=== PATIENT | female | born 1945 | race Caucasian/White ===

== ENCOUNTER → 2020-07-07 14:37 | Outpatient (CLI) | payer MEDICARE, SELFPAY ==
--- NOTE | ~2020-07-07 | MM_ITS ---
EXAMINATION: MM screening [facility] BI w sandie HISTORY: Screening mammogram TECHNIQUE: Craniocaudal and mediolateral oblique 3-D tomosynthesis images were obtained and synthetic 2-D images were generated. CAD analysis was submitted and interpreted. COMPARISON: 06/14/2019, 04/13/2018, 01/06/2017 bilateral digital screening mammogram examinations BREAST PARENCHYMAL COMPOSITION: The breasts are almost entirely fatty.. FINDINGS: There is a benign intramammary lymph node in each upper outer quadrant. Occasional benign c alcifications. There is no evidence of suspicious mass, calcification, or architectural distortion to suggest malignancy in either breast. There has been no suspicious interval change. IMPRESSION: 1. No mammographic evidence of malignancy. 2. Recommend routine screening mammography in one year. BI-RADS Category 2: Benign finding(s). Reviewed, dictated and finalized at location A.
== END ==
PROVIDERS: Visit Provider Student in an Organized Health Care Education/Training Program
DX: Z12.31 Encounter for screening mammogram for malignant neoplasm of breast (principal)
CPT/HCPCS: 77063; 77067

== ENCOUNTER → 2021-07-16 13:52 | Outpatient (CLI) | payer MEDICARE, SELFPAY ==
--- NOTE | ~2021-07-16 | MM_ITS ---
EXAMINATION: MM screening [facility] BI w sandie HISTORY: Screening mammogram TECHNIQUE: Craniocaudal and mediolateral oblique 3-D tomosynthesis images were obtained and synthetic 2-D images were generated. CAD analysis was submitted and interpreted. COMPARISON: 07/07/2020, 06/14/2019, 04/13/2018 bilateral digital screening mammogram examinations BREAST PARENCHYMAL COMPOSITION: The breasts are almost entirely fatty. FINDINGS: Bilateral scattered benign calcifications. There is no evidence of suspicious mass, calcifi cation, or architectural distortion to suggest malignancy in either breast. There has been no suspici ous interval change. IMPRESSION: 1. No mammographic evidence of malignancy. 2. Recommend routine screening mammography in one year. BI-RADS Category 2: Benign finding(s). Reviewed, dictated and finalized at location A.
== END ==
PROVIDERS: PCP Student in an Organized Health Care Education/Training Program; Visit Provider Student in an Organized Health Care Education/Training Program
DX: Z12.31 Encounter for screening mammogram for malignant neoplasm of breast (principal)
CPT/HCPCS: 77063; 77067

== ENCOUNTER → 2021-07-27 11:01 | Outpatient (CLI) | payer MEDICARE, SELFPAY ==
--- NOTE | ~2021-07-27 | CT_ITS ---
EXAMINATION:CT lung screening DATE: 07/27/2021 11:23 INDICATION: Nicotine dependence, cigarettes, uncomplicated. Current smoker. TECHNIQUE: Computed tomography (CT) of the chest was performed without intravenous contrast. Automate d exposure control and iterative reconstruction technique were employed. The dose-length product (DLP ) was 71.90 mGy-cm. COMPARISON: None. FINDINGS: There is mild atelectasis bilaterally. No pleural effusion. The heart size is normal. There are coronary artery calcifications. No pericardial effusion. There is a moderate-sized sliding hiata l hernia. There is a 12 mm cyst in the liver. There is severe lumbar spondylosis. IMPRESSION: 1. Lung-RADS category 1: Negative. Continue annual screening with noncontrast low-dose chest CT in 12 months. Reviewed, dictated and finalized at location A. IMPRESSION: 1. Lung-RADS category 1: Negative. Continue annual screening with noncontrast l ow-dose chest CT in 12 months.
== END ==
PROVIDERS: PCP Student in an Organized Health Care Education/Training Program; Visit Provider Student in an Organized Health Care Education/Training Program
DX: F17.210 Nicotine dependence, cigarettes, uncomplicated (principal)
CPT/HCPCS: 71271

== ENCOUNTER → 2022-02-05 10:23 | Outpatient (CLI) | payer MEDICARE, SELFPAY ==
--- NOTE | ~2022-02-05 | DEXA_ITS ---
Bone Density Report Name: TROY FALL Age: 76 Sex: Female Ethnicity: White Date of : 1945 Indication: osteopenia; height loss; hysterectomy; Referring Provider: Mraika, Jono Study: Bone densitometry was performed. Exam Date: February 05, 2022 Accession number: [id number] Bone Density: Region BMD T-score Z-score Classification AP Spine (L2, L3) 1.213 1.4 3.9 Normal Femoral Neck (Left) 0.583 -2.4 -0.3 Osteopenia Total Hip (Left) 0.721 -1.8 0.0 Osteopenia Femoral Neck (Right) 0.590 -2.3 -0.2 Osteopenia Total Hip (Right) 0.724 -1.8 0.0 Osteopenia Total Hip Mean 0.723 -1.8 0.0 Osteopenia World Health Organization criteria for BMD impression classify patients as: Normal (T-score at or above -1.0), Osteopenia (T-score between -1.0 and -2.5), or Osteoporosis (T-score at or below -2.5). 10-year Fracture Risk(1): Major Osteoporotic Fracture 17% Hip Fracture 7.6% Reported Risk Factors: [place] (), Neck BMD=0.583, BMI=24.8, smoking (1) FRAX(R) Version 3.08. Fracture probability calculated for an untreated patient. Fracture probability may be lower if the patient has received treatment. Previous Exams: Region Exam Age BMD T-score BMD Change BMD Change Date g/cm2 vs Baseline vs Previous Total Hip(Left) 02/05/2022 76 0.721 -1.8 -0.042* -0.042* 08/06/2019 73 0.763 -1.5 Total Hip(Right) 02/05/2022 76 0.724 -1.8 -0.051* -0.051* 08/06/2019 73 0.775 -1.4 *Denotes significance at 95% confidence level, LSC for Total Hip = 0.027 g/cm2 Clinical Information Provided by Patient: Smokes Has the following medical conditions: Hysterectomy Patient maximum height was 65.5 Menopause Age: 53 No regular weight bearing exercise Does not regularly consume dairy products Drinks caffeinated beverages Onset of menses at age 14 Number of children 2 Impression: The patient has low bone mass, based on the Left Femoral Neck T-score. The patient has an estimated ten-year risk of hip fracture of 7.6% and an estimated ten-year risk of major fracture of 17%, based on the WHO FRAX algorithm. The patient has risk factors, including: smoking. The BMD for the Total Hip(Left) decreased, changing by -0.042 since the last DXA exam. The BMD for the Total Hip(Right) decreased, changing by -0.051 since the last DXA exam. Discussion: BONE DENSITY IS LOW AT ONE OR MORE SKELETAL SITES. THE PATIENT'S BMD AND CLINICAL RISK FACTORS CONTRIBUTE TO THIS PATIENT'
== END ==
PROVIDERS: PCP Student in an Organized Health Care Education/Training Program; Visit Provider Student in an Organized Health Care Education/Training Program
DX: M85.852 Other specified disorders of bone density and structure, left thigh (principal); M85.851 Other specified disorders of bone density and structure, right thigh
CPT/HCPCS: 77080

== ENCOUNTER → 2022-09-29 13:27 | Outpatient (CLI) | payer MEDICARE, SELFPAY ==
--- NOTE | ~2022-09-29 | MM_ITS ---
EXAMINATION: MM screening [facility] BI w sandie HISTORY: Screening mammogram TECHNIQUE: Craniocaudal and mediolateral oblique 3-D tomosynthesis images were obtained and synthetic 2-D images were generated. CAD analysis was submitted and interpreted. COMPARISON: 07/16/2021, 07/07/2020, 06/14/2019 BREAST PARENCHYMAL COMPOSITION: The breasts are almost entirely fatty. FINDINGS: No suspicious mass, calcification, or architectural distortion are identified in either louis ast to suggest malignancy. There has been no suspicious interval change. IMPRESSION: 1. No mammographic evidence of malignancy. 2. Recommend routine screening mammography in one year. BI-RADS Category 1: Negative Reviewed, dictated and finalized at location A. [employer]
== END ==
PROVIDERS: PCP Student in an Organized Health Care Education/Training Program; Visit Provider Student in an Organized Health Care Education/Training Program
DX: Z12.31 Encounter for screening mammogram for malignant neoplasm of breast (principal)
CPT/HCPCS: 77063; 77067

== ENCOUNTER 2025-01-15 10:48 | Emergency (ER) | payer MEDICARE, SELFPAY ==
[2025-01-15] VITALS (7 sets, daily range): BP systolic 103–133; BP diastolic 58–87; PULSE 75–100; RESP 16–18; TEMP 36.5–36.6; O2SAT 95–100
--- NOTE | ~2025-01-15 | CT_ITS ---
EXAMINATION: CT abdomen pelvis w con DATE: 01/15/2025 13:02 INDICATION: Nausea, vomiting and diarrhea. Abdominal pain. TECHNIQUE: Computed tomography (CT) of the abdomen and pelvis was performed with 100 mL Omnipaque-350 intravenous contrast. Automated exposure control and iterative reconstruction technique were employe d. The dose-length product was 198.60 mGy-cm. COMPARISON: None FINDINGS: Mild discoid atelectasis in the left lower lobe. Heart size is normal. No pericardial or pleural effu ghazala. Moderate-sized sliding-type hiatal hernia with organoaxial volvulus of the intrathoracic portio n the stomach a few hepatic cysts measuring up to 1.9 cm. Gallbladder, spleen, pancreas, bilateral ad renal glands and left kidney are normal. Subcentimeter low-attenuation likely right renal cyst which remains too small to definitively characterize. There is colonic wall thickening with mucosal enhance ment and some surrounding inflammatory stranding at the ascending colon suspicious for a focal coliti s. Likely normal short appendix versus appendiceal stump without adjacent inflammatory stranding to s uggest appendicitis. No bowel obstruction. Bladder is normal. The uterus is not identified and has stephanie freed been surgically resected. No free intraperitoneal gas or fluid. No pathologically enlarged abdom inal or pelvic lymphadenopathy. There is calcified atherosclerosis of the aorta and many of the other arteries. Severe lumbar and lower thoracic spondylosis. 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 IMPRESSION: 1. Focal wall thickening with mucosal enhancement and surrounding inflammatory stranding at the ascen ding colon consistent with colitis which could be infectious, inflammatory or less likely ischemic in etiology. 2. Moderate-sized sliding-type hiatal hernia. Reviewed, dictated and finalized at location B. IMPRESSION: 1. Focal wall thickening with mucosal enhancement and surrounding inflammatory stranding at the ascending colon consistent with colitis which could be infecti ous, inflammatory or less likely ischemic in etiology. 2. Moderate-sized sliding-type hiatal hernia.
--- NOTE | ~2025-01-15 | XR_ITS ---
XR chest 2V Ordering provider: Grey Sweeney MD History: 79 years Female with . unintensional weight loss, smoker . Comparison: April 05, 2010 FINDINGS: MEDIASTINUM: The cardiac silhouette is not enlarged. Sliding hiatus hernia. LUNGS: No infiltrates, effusions or pneumothorax. Prominent markings in the lower lobes suggestive of fibrotic changes. OTHER: No free air under the diaphragm. IMPRESSION: No acute cardiopulmonary pathology. Reviewed, dictated and finalized at location A.
[2025-01-15 11:52] LABS: Basophils Percent Auto 0.2 % (0.2-1.2); Eosinophils Percent Auto 0.5 % (0-4.4); Hematocrit 39.8 % (37.0-47.0); Immature Granulocyte Absolute 0.03 K/mm3 (0.00-0.031); Immature Granulocyte Percent A 0.4 % (0-0.5); Lymphocytes Percent Auto 17.4 % (18.3-44.2); Mean Corpuscular HGB Conc 32.7 g/dl (32-36); Mean Corpuscular Hemoglobin 27.5 pg (26-34); Mean Corpuscular Volume 84.3 fl (80-100); Mean Platelet Volume 8.5 fl (7.4-10.4); Monocytes Absolute Auto 0.9 K/mm3 (0.1-0.6); Monocytes Percent Auto 10.9 % (2.6-8.5); Neutrophils Absolute Auto 5.7 K/mm3 (1.3-6.7); Neutrophils Percent Auto 70.6 % (45.5-73.1); Platelet Count Result 328 k/mm3 (150-375); Red Blood Count 4.72 M/mm3 (4.2-5.4); Red Cell Distribution Width 14.6 % (11.5-14.5)
[2025-01-15 12:11] LABS: Add Urine Microscopic? YES; Appearance Urine Turbid (Clear); Bacteria Urine 4+ /hpf; Bilirubin Urine 1+ (Negative); Blood Urine Negative (Negative); Color Urine Dark Yellow (Yellow); Glucose Urine UA Negative (Negative); Ketones Urine Trace mg/dL (Negative); Leukocyte Esterase Ur 2+ LEU/UL (Negative); Mucus Urine Present /lpf; Need Manual Microscopic Reviewed; Nitrate Urine Positive (Negative); Protein Urine 1+ mg/dL (Negative); RBC Urine 21-50 /hpf (0-2); Specific Grav Ur 1.019 (1.001-1.035); Squamous Epithelial Cell Urine Many /hpf (Few); WBC Urine 51-100 /hpf (0-3); pH Urine 5.5 (5.0-9.0)
--- NOTE | 2025-01-15 12:22 | ED_ITS ---
HPI - Abdominal Pain General Chief Complaint: Abdominal Pain Stated Complaint: abd pain, diarrhea Time Seen by Provider: 01/15/25 11:28 History of Present Illness HPI narrative: 79-year-old female with no pertinent past medical history presenting to the emergency department with a chief complaint of significant weight loss unintentional over last few months associated with decreased appetite, vague abdominal pain in the right side of her belly, diarrhea, nauseousness. Symptoms are intermittent but she states that she has not changed her diet, no new medications. Denies any abdominal surgeries. Endorses previous smoking history but denies any current smoking use. No COPD history. Colonoscopy over 10 years prior without concern. No strong family history of cancer. She was otherwise in her normal state of health. Related Data Home Medications ?Medication ?Instructions ?Recorded ?Confirmed ?Last Taken ?Type aspirin 81 mg tablet,delayed 81 mg PO DAILY 10/10/19 Unknown History release (Adult Aspirin Regimen) Allergies Allergy/AdvReac Type Severity Reaction Status Date / Time No Known Allergies Allergy Verified 01/15/25 10:58 Review of Systems 2 Review of Systems: As reviewed above in HPI [facility] Past Medical History Medical History (Updated 01/15/25 @ 15:20 by Grey Sweeney MD) High cholesterol Surgical History Surgical History History of hysterectomy Family History Family History Other Family history of aortic aneurysm Social History Social History Smoking status: Current every day smoker Tobacco type: cigarettes Second hand tobacco smoke exposure: No Alcohol intake: never Substance use: never Exam 2 Narrative: GENERAL: [Well-appearing, well-nourished, and in no acute distress.] HEAD: [Normocephalic, atraumatic.] EYES: [PERRLA and EOMI.] ENT: Nares clear, no rhinorrhea or epistaxis. Mucous membranes moist. NECK: Supple. CHEST: [Clear to auscultation. No respiratory distress.] HEART: [Regular rate and rhythm]. No murmur heard. [Normal peripheral pulses.] ABDOMEN: [Soft, nondistended], [nontender], [No rigidity or guarding] EXTREMITIES: Normal range of motion. [No edema.] SKIN: Warm, dry, no rash. NEURO: [No focal deficits]. Alert and oriented [x3.] PSYCH: [Normal mood and affect.] Course Vital Signs Vital signs: Vital Signs Temperature 36.5 C 01/15/25 10:55 Pulse Rate 100 01/15/25 10:55 Respiratory Rate 18 01/15/25 10:55 Blood Pressure 132/87 01/15/25 10:55 Pulse Oximetry 100 01/15/25 10:55 Oxygen Delivery Room Air 01/15/25 10:55 Temperature 36.5 C 01/15/25 10:55 Pulse Rate 75 01/15/25 14:03 Respiratory Rate 16 01/15/25 14:03 Blood Pressure 103/82 01/15/25 14:03 Pulse Oximetry 99 01/15/25 14:03 Oxygen Delivery Room Air 01/15/25 10:55 MDM - Abdominal Pain MDM Narrative Medical decision making narrative: 79-year-old female with no pertinent past medical history presenting to the emergency department with vague symptoms including decreased appetite, significant unintentional weight loss, diarrhea nauseousness and abdominal discomfort for last several months. She does not have a present PCP and is establishing with a new doctor but her urged her to come to the emergency department for evaluation. No strong family history of cancer, negative colonoscopy over 10 years prior, some smoking history. No shortness of breath. She has normal vital signs I tachycardia, fever or hypoxia. Abdominal examination is benign. She otherwise is well appearing but with her symptoms is concerning that she could have an underlying process such as malignancy forming especially in the abdominal region. Electrolyte disturbances, leukemia, infectious pathology also possible. Workup was ordered including CBC, CMP, urinalysis, lipase. CT of the abdomen pelvis was ordered. Chest x-ray obtained. Placed on equipment monitor phototypesetting and pulse oximetry. Workup shows no leukocytosis or anemia. Normal platelet count. Electrolytes within normal limits. Normal renal function. Normal hepatic function. Normal glucose. Urinalysis is very contaminated, does have some white blood cells but she has no urinary symptoms this time. Chest x-ray shows no acute process. CT scan shows colitis which could be infectious or inflammatory. No etiology suspected for ischemia at this time. Moderate-sized hiatal hernia. Patient is hemodynamically stable without any white count elevations. She is not ill or septic appearing. Will trial a course of antibiotics including ciprofloxacin and Flagyl for 10 days and refer her to GI for potential colonoscopy given that she is having GI symptoms, colitis in the scan and weight loss. Patient comfortable with this plan has a close outpatient follow-up appointment this week. Patient was given return precautions and prescription sent to her pharmacy. Medical Records Attestation: I reviewed the patient's medical records. Lab Data Attestation: I reviewed the patient's lab results. 01/15/25 11:46 01/15/25 11:46 Labs: Lab Results 01/15/25 01/15/25 Range/Units 11:46 11:53 WBC 8.0 (4.5-10.0) K/mm3 RBC 4.72 (4.2-5.4) M/mm3 Hgb 13.0 (12.0-15.0) g/dL Hct 39.8 (37.0-47.0) % MCV 84.3 (80-100) fl MCH 27.5 (26-34) pg MCHC 32.7 (32-36) g/dl RDW 14.6 H (11.5-14.5) % Plt Count 328 (150-375) k/mm3 MPV 8.5 (7.4-10.4) fl Immature Gran % (Auto) 0.4 (0-0.5) % Neut % (Auto) 70.6 (45.5-73.1) % Lymph % (Auto) 17.4 L (18.3-44.2) % [place] % (Auto) 10.9 H (2.6-8.5) % Eos % (Auto) 0.5 (0-4.4) % Baso % (Auto) 0.2 (0.2-1.2) % Lymph # (Auto) 1.40 (0.9-3.2) K/mm3 [place] # (Auto) 0.9 H (0.1-0.6) K/mm3 Eos # (Auto) 0.0 (0-0.3) K/mm3 Baso # (Auto) 0.0 (0.0-0.1) K/mm3 Abs Immat Gran (auto) 0.03 (0.00-0.031) K/mm3 Absolute Neuts (auto) 5.7 (1.3-6.7) K/mm3 Absolute Nucleated RBC 0.000 (0.0-0.012) K/mm3 Nucleated RBC % 0.0 (0.0-0.2) % Sodium 135 L (137-145) mmol/L Potassium 4.0 (3.4-5.0) mmol/L Chloride 101 (98-107) mmol/L Carbon Dioxide 25 (22-30) mmol/L Anion Gap 9 (4-12) mmol/L BUN 12 (7-17) mg/dL Creatinine 0.67 L (0.7-1.0) mg/dL Estim Creat Clear Calc 51 ml/min Estimated GFR > 60 (59 - ) Glucose 97 (65-110) mg/dL Calcium 9.1 (8.4-10.2) mg/dL Total Bilirubin 0.7 (0.2-1.3) mg/dL AST 25 (14-36) U/L ALT 13 (6-35) U/L Alkaline Phosphatase 81 (38-126) U/L Total Protein 7.0 (6.3-8.2) g/dL Albumin 3.7 (3.5-5.1) g/dL Lipase 31 (23-300) U/L Urine Color Dark yellow (Yellow) Urine Appearance Turbid H (Clear) Urine pH 5.5 (5.0-9.0) Ur Specific [place] 1.019 (1.001-1.035) Urine Protein 1+ H (Negative) mg/dL Urine Glucose (UA) Negative (Negative) mg/dL Urine Ketones Trace H (Negative) mg/dL Ur Blood (Man) Negative (Negative) Urine Nitrate Positive H (Negative) Urine Bilirubin 1+ H (Negative) Urine Urobilinogen 1.0 (<2.0) mg/dL Add Ur Microanalysis Reviewed Leukocyte Esterase Rfl 2+ H (Negative) [place]/UL Urine RBC 21-50 H (0-2) /hpf Urine WBC 51-100 H (0-3) /hpf Ur Squamous Epith Cells Many H (Few) /hpf Urine Bacteria 4+ /hpf Urine Casts 11-20 Urine Mucus Present /lpf Imaging Data Attestation: I personally reviewed and interpreted this imaging study as follows: My impression: Impressions Chest X-Ray 01/15/25 12:41 IMPRESSION: No acute cardiopulmonary pathology. Abdomen/Pelvis CT 01/15/25 13:05 IMPRESSION: 1. Focal wall thickening with mucosal enhancement and surrounding inflammatory stranding at the ascending colon consistent with colitis which could be infectious, inflammatory or less likely ischemic in etiology. 2. Moderate-sized sliding-type hiatal hernia. Radiologist's impression: ITS Impressions Chest X-Ray 01/15/25 12:41 IMPRESSION: No acute cardiopulmonary pathology. Abdomen/Pelvis CT 01/15/25 13:05 IMPRESSION: 1. Focal wall thickening with mucosal enhancement and surrounding inflammatory stranding at the ascending colon consistent with colitis which could be infectious, inflammatory or less likely ischemic in etiology. 2. Moderate-sized sliding-type hiatal hernia. Discharge Plan Discharge Clinical Impression: Colitis Patient Disposition: Home, Self-Care Condition: Stable Instructions: Antibiotic Form, Colitis (ED) Additional Instructions: Your CT scan shows inflammation in the your distal colon which could be infectious. We will empirically treat you with antibiotics and need you to follow-up with the GI doctor and your primary care provider. Ultimately you do need a colonoscopy to better visualize this area and make sure there is no underlying masses especially with your weight loss. Return with any new or worsening concerns, call your doctor and schedule close outpatient follow-up. We have provided to a GI specialist to call as well. Patient Language: Uzbek Prescriptions: New ciprofloxacin HCl 500 mg tablet 500 mg PO Q12H 10 Days Qty: 20 0RF metronidazole 500 mg tablet 500 mg PO Q12H 10 Days Qty: 20 0RF No Action aspirin [Adult Aspirin Regimen] 81 mg tablet,delayed release (DR/EC) 81 mg PO DAILY esomeprazole magnesium 40 mg capsule,delayed release(DR/EC) 40 mg PO DAILY Qty: 90 3RF atorvastatin 40 mg tablet 40 mg PO DAILY Qty: 90 3RF Follow-up/Referrals: Amari,Jaime Arshad MD [Primary Care Provider] - Miguel Polk MD [Physician] - 1 Week (Colitis, weight loss suspicious for potential underlying process and will need colonoscopy.) Time of Disposition: 15:21
[2025-01-15 12:34] LABS: Alanine Aminotransferase 13 U/L (6-35); Albumin Level 3.7 g/dL (3.5-5.1); Alkaline Phosphatase 81 U/L (38-126); Anion Gap 9 mmol/L (4-12); Aspartate Amino Transferase 25 U/L (14-36); Bilirubin,Total 0.7 mg/dL (0.2-1.3); Blood Urea Nitrogen 12 mg/dL (7-17); Calcium 9.1 mg/dL (8.4-10.2); Carbon Dioxide 25 mmol/L (22-30); Chloride 101 mmol/L (98-107); Estimated CRCL calculation 51 ml/min; Estimated Glomerular Filt Rate > 60; Glucose 97 mg/dL (65-110); Lipase 31 U/L (23-300); Sodium 135 mmol/L (137-145)
--- OUTSIDE RECORDS SUMMARY | 2025-01-15 12:47 | XMS_ITS | Clinical Summary ---
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 Name Role Phone Jono Hairston DO Primary Care Provider + Allergies No known active allergies Medications esomeprazole (NEXIUM) 40 MG capsuleIndications :GERD (gastroesophageal reflux disease) TAKE 1 CAPSULE BY MOUTH EVERY DAY IN THE MORNING BEFORE BREAKFAST 90 capsule 1 3 Active rosuvastatin (CRESTOR) 20 MG tabletIndications: Hyperlipidemia, unspecified hyperlipidemia type take 1 tablet by mouth everyday at bedtime 90 tablet 4 Active Active Problems Problem Noted Date Diagnosed Date Hyperlipidemia, unspecified hyperlipidemia type 01/26/2022 Gastroesophageal reflux dise ase, unspecified whether esophagitis present 01/26/2022 Immunizations Name Administration Dates Next Due Fluad influenza vaccine, Chris drivalent (aIIV4), Inactivated, adjuvanted, preservative free, 0.5 mL,IM use 07/02/2020 Flucelvax 2 YRS+ (Multi-Dose Vial) 07/31/2018 Fluzone High Dose (IIV, triv alent, 0.5mL) 08/11/2024 Fluzone High Dose - >Age 65 (Prefilled Syringe) 08/10/2023,08/06/2022,10/07/2015,2013 Influenza (Generic) 08/05/2014 Influenza Adult (Generic) 07/31/2021,,07/31/2018,2013 PFIZER COVID-19 (ORIGINAL FORMULATION, PURPLE CAP) mRNA, LNP-S, PF, 30 MCG/0.3 ML DOSE 08/11/2024,08/24/2022 PFIZER COVID-19 BIVALENT (12 +) mRNA, LNP-S, PF, 30 MCG/0.3 ML DOSE 08/24/2022 Pneumococcal (Pneumovax 23) 09/15/2011 Pneumococcal (Prevnar 13) 06/10/2020 Pneumovax 23 25 Mcg/0.5Ml Ij Inj 08/11/2009 Td 07/19/2019,07/19/2019 Td (TDVAX) 07/19/2019 Td, Adsorbed, Preservative F ree, Adult Use, Lf Unspecified 08/11/2009 Family History Medical History Relation Comments Heart Disease Father No Known Problems Mother Lung Cancer Sister 1 Thyroid Sister 2 Relation Status Comments Father Mother Sister 1 Sister 2 Alive Social History Tobacco Use Types Packs/Day Years Used Date Smoking Tobacco: Every Day Cigarettes 0.8 58.6 Started: 06/10/1966 Smokeless Tobacco: Never Tobacco Cessation:Ready to Q uit: No; Counseling Given: Not 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 4 or more times a week 06/10/2020 Q2: How many drinks containi ng alcohol do you have on a typical day when you are drinking? 1 or 2 0 Q3: How often do you have si x or more drinks on one occasion? Never 06/10/2020 PHQ-2 Answer Date Recorded Patient Health Questionnaire-2 Score 0 08/10/2023 Comments No Sex and Gender Information Value Date Recorded Sex Assigned at Not on file Legal Sex Female 10:47 AM CDT Gender Identity Not on file Sexual Orientation Not on file Last Filed Vital Signs Vital Sign Reading Time Taken Comments Blood Pressure 118/76 08/10/2023 9:38 AM CDT Pulse 100 08/10/2023 9:38 AM CDT Temperature 36.7 C (98 F) 08/10/2023 9:38 AM CDT Respiratory Rate 16 08/10/2023 9:38 AM CDT Oxygen Saturation 96% 08/10/2023 9:38 AM CDT Inhaled Oxygen Concentration - - Weight 64.9 kg (143 lb) 08/10/2023 9:38 AM CDT Height 163.8 cm (5' 4.5 ) 08/10/2023 9:38 AM CDT Body Mass Index 24.17 08/10/2023 9:38 AM CDT Plan of Treatment Health Maintenance Due Date Last Done Comments Annual Medicare Wellness Visit 2011 RSV Immunization or 60+ Years (1 - 1-dose 75+ series) 2021 PHQ-2 (Physician [place]) 08/10/2024 08/10/2023 COVID-19 Vaccine ( season) 2024 08/11/2024, 09/27/2023, 08/24/2022, Additional history exists PHQ-2 (Physician [place]) 10/24/2024 08/10/2023 Zoster Vaccines (1 of 2) 05/26/2029 Pos tponed from 1996 (Patient Refused) DTaP, Tdap and Td Vaccines (1 - Tdap) 07/19/2029 07/19/2019, 07/19/2019, 07/19/2019, Additional history exists Postponed from 07/20/2019 (Future Appointment) Colorectal Cancer Screening Colonoscopy (10 Years) Discontinued 05/30/2006 Pneumococcal Vaccine: 65+ Years Completed 06/10/2020, 09/15/2011, 08/11/2009 Hepatitis C Completed 06/12/2020 Dexa Scan (General) Completed 02/05/2022, 02/05/2022, 08/06/2019, Additional history exists Influenza Adult Completed 08/11/2024, 07/24, 08/06/2022, Additional history exists Meningococcal B Vaccine Aged Out No l onger eligible based on patient's age to complete this topic Meningococcal Vaccine Aged Out No andrey olesya eligible based on patient's age to complete this topic RSV Immunizations Under 20 Months Aged Out No longer eligible based on patient's age to complete this topic Procedures Procedure Name Priority Date/Time Associated Diagnosis Comments BONE DENSITY GENERIC (SCAN ORDER) 02/05/2022 HEPATITIS C ANTIBODY W/RFX TO HCV RNA Routine 06/12/2020 7:19 AM CDT Need for hepatitis C screening test COLONOSCOPY GENERIC (SCAN ORDER) 05/30/2006 from Last 3 Months or Most Recently Relevant to Health Maintenance Results * BONE DENSITY GENERIC (02/05/2022) Anatomical Region Laterality Modality Other 02/05/2022 Narrative 02/05/2022 Ordered by an unspecified provider. us Documents Scanned SCANNING Final Result * HEPATITIS C ANTIBODY W/RFX TO HCV RNA (06/12/2020 7:19 AM CDT) HEPATITIS C AB NON-REACT OSIEL NON-REACT OSIEL [employer] [facility] SIGNAL TO CUTOFF 0.07 <1.00 [employer] [facility] Comment: HCV antibody was non-reactive. There is no laboratory evidence of HCV infection. In most cases, no further action is required. However, if recent HCV exposure is suspected, a test for HCV RNA (test code 56866) is suggested. For additional information please refer to http://education.Wireless Safety/faq/BMM59q1 (This link is being provided for informational/ educational purposes only.) 06/12/2020 7:19 AM CDT 06/12/2020 7:19 AM CDT Narrative [employer] - [place] ORDERS - 06/13/2020 10:51 AM CDT FASTING:YES FASTING: YES Resulting Agency Comment Performing Organization Information: Site ID: [id number] Name: [facility] Address: [address] [place] [address] Director: Darian Caldwell D.O., MPH us Jono Hairston DO LABORATORY Final Re sult [facility] - [place] ORDERS [employer] [facility] [id number] [place] [address], * COLONOSCOPY GENERIC (05/30/2006) 05/30/2006 Narrative 05/30/2006 Ordered by an unspecified provider. us Documents Scanned SCANNING Final Result from Last 3 Months or Most Recently Relevant to Health Maintenance Insurance [employer] Care Teams Cattle Farmer Relationship Specialty Start Date End Date Jono Hairston DO [address] [place] [id number] PCP - General FAMILY PRACTICE 06/10/20
--- OUTSIDE RECORDS SUMMARY | 2025-01-15 14:05 | XMS_ITS | Clinical Summary ---
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 There is no laboratory evidence of HCV infection. In most cases, no further action is required. However, if recent HCV exposure is suspected, a test for HCV RNA (test code 71327) is suggested. For additional information please refer to http://education.[employer]/faq/PAS75p7 (This link is being provided for informational/ educational purposes only.) 06/12/2020 7:19 AM CDT 06/12/2020 7:19 AM CDT Narrative [facility] - [facility] - 06/13/2020 10:51 AM CDT FASTING:YES FASTING: YES Resulting Agency Comment Performing Organization Information: Site ID: [place] Name: [facility] Address: [address] [place] [address] Director: Darian Caldwell D.O., MPH us Jono Hairston DO LABORATORY Final Re sult [facility] - [facility] [id number] [place] [address], * COLONOSCOPY GENERIC (05/30/2006) 05/30/2006 Narrative 05/30/2006 Ordered by an unspecified provider. us Documents Scanned SCANNING Final Result from Last 3 Months or Most Recently Relevant to Health Maintenance Insurance [employer] Care Teams Lobster Man Relationship Specialty Start Date End Date Jono Hairston DO [address] [place] [id number] PCP - General FAMILY PRACTICE 06/10/20
== END 2025-01-15 15:30 | disposition home or self-care (01) ==
PROVIDERS: Emergency Provider Student in an Organized Health Care Education/Training Program; PCP Internal Medicine
DX: K52.9 Noninfective gastroenteritis and colitis, unspecified (principal); E78.5 Hyperlipidemia, unspecified
CPT/HCPCS: 36415; 71046; 74177; 80053; 81001; 83690; 85025; 99284; Q9967